=== PATIENT | female | born 1975 | race Caucasian/White ===

== ENCOUNTER 2021-06-11 14:27 | Emergency (ER) | payer OTHER ==
[2021-06-11] MEDS ORDERED: IBUPROFEN 600 MG TAB PO STA (14:59)
== END 2021-06-11 18:27 | disposition home or self-care (01) ==
LOC: ER 14:58
DX: R07.89 Other chest pain (principal); S20.219A Contusion of unspecified front wall of thorax, initial encounter; M79.641 Pain in right hand; V43.52XA Car driver injured in collision with other type car in traffic accident, initial encounter; Y92.488 Other paved roadways as the place of occurrence of the external cause; F17.210 Nicotine dependence, cigarettes, uncomplicated; B19.20 Unspecified viral hepatitis C without hepatic coma
CPT/HCPCS: 71046; 99283

== ENCOUNTER 2022-01-11 15:13 | Emergency (ER) | payer SELFPAY ==
[~2022-01-11] VITALS: Ht 165.1 cm; Wt 61.2 kg
[2022-01-11] MEDS ORDERED: DIPHTH/TETANUS/ACEL. PERTUSSIS 0.5 ML SYR IM ONE (15:30)
[2022-01-11] MEDS ORDERED: KETOROLAC TROMETHAMINE 60 MG/2 ML VIAL IM ONE (16:00)
[2022-01-11] MEDS ORDERED: LIDOCAINE HCL 1% 2 ML AMP ONE (16:17)
[2022-01-11] MEDS ORDERED: CEPHALEXIN500 MG PO (16:18)
[2022-01-11] MEDS ORDERED: TETANUS/DIPHTHERIA TOX ADULT 0.5 ML SYR ONE (16:33)
[2022-01-11] MEDS ORDERED: BACITRACIN ZINC 0.9GM TP ONE (16:33)
[2022-01-11] MEDS ORDERED: LIDOCAINE HCL 1% LOCAL INJ 20 ML VIAL INJ ONE (17:00)
== END 2022-01-11 16:53 | disposition home or self-care (01) ==
LOC: ER 15:45
DX: S91.011A Laceration without foreign body, right ankle, initial encounter (principal); W26.8XXA Contact with other sharp object(s), not elsewhere classified, initial encounter; Y93.H2 Activity, gardening and landscaping; Y92.007 Garden or yard of unspecified non-institutional (private) residence as the place of occurrence of the external cause; B19.20 Unspecified viral hepatitis C without hepatic coma; F17.210 Nicotine dependence, cigarettes, uncomplicated
CPT/HCPCS: 12002; 73610; 90471; 90714; 99283; J1885; J2001

== ENCOUNTER 2022-06-19 11:48 | Emergency (ER) | payer SELFPAY ==
[~2022-06-19] VITALS: Ht 165.1 cm; Wt 61.2 kg
[~2022-06-19 11:48] MED LIST: CEPHALEXIN500 MG PO
== END 2022-06-19 12:10 | disposition home or self-care (01) ==
LOC: ER 12:06
DX: R50.9 Fever, unspecified (principal); R09.89 Other specified symptoms and signs involving the circulatory and respiratory systems; R05.9 Cough, unspecified; B19.20 Unspecified viral hepatitis C without hepatic coma; F17.210 Nicotine dependence, cigarettes, uncomplicated
CPT/HCPCS: 99282

== ENCOUNTER 2024-05-30 01:38 | Emergency (ER) | payer BC ==
[~2024-05-30] VITALS: Ht 165.1 cm; Wt 61.2 kg
[2024-05-30 01:42] VITALS: PULSE 84; RESP 17; TEMP 98.4; O2SAT 100
[2024-05-30] MEDS ORDERED: BACTRIM 400-801 EACH PO (01:45)
== END 2024-05-30 01:50 | disposition home or self-care (01) ==
LOC: ER 01:46
DX: L08.0 Pyoderma (principal); B19.20 Unspecified viral hepatitis C without hepatic coma; F17.210 Nicotine dependence, cigarettes, uncomplicated
CPT/HCPCS: 99282

== ENCOUNTER 2024-07-15 22:51 | Emergency (ER) | payer BC ==
[~2024-07-15] VITALS: Ht 165.1 cm; Wt 61.2 kg
[~2024-07-15 22:51] MED LIST changes: +BACTRIM 400-801 EACH PO
[2024-07-15] MEDS ORDERED: BACTRIM DS TAB1 EACH PO (23:07)
[2024-07-15] MEDS ORDERED: CEPHALEXIN500 MG PO (23:07)
[2024-07-15 23:08] VITALS: PULSE 92; RESP 18; TEMP 98.4; O2SAT 100
[2024-07-16] MEDS ORDERED: SODIUM CHLORIDE 0.9% 1000ML 1,000 ML ONE (00:45)
== END 2024-07-15 23:20 | disposition home or self-care (01) ==
LOC: ER 22:58
DX: L08.9 Local infection of the skin and subcutaneous tissue, unspecified (principal); B19.20 Unspecified viral hepatitis C without hepatic coma
CPT/HCPCS: 99282; J7030

== ENCOUNTER 2024-10-30 04:53 | Emergency (ER) | payer BC, OTHER ==
[~2024-10-30] VITALS: Ht 165.1 cm; Wt 61.2 kg
[~2024-10-30 04:53] MED LIST changes: +BACTRIM DS TAB1 EACH PO
[2024-10-30 04:59] VITALS: PULSE 81; RESP 16; TEMP 98.4; O2SAT 100
== END 2024-10-30 05:05 | disposition home or self-care (01) ==
LOC: ER 04:59
DX: L08.9 Local infection of the skin and subcutaneous tissue, unspecified (principal); F15.10 Other stimulant abuse, uncomplicated; K76.9 Liver disease, unspecified; F17.210 Nicotine dependence, cigarettes, uncomplicated
CPT/HCPCS: 99283

== ENCOUNTER 2024-11-23 04:02 | Emergency (ER) | payer OTHER ==
[~2024-11-23] VITALS: Ht 165.1 cm; Wt 61.2 kg
[2024-11-23 04:06] VITALS: PULSE 82; RESP 16; TEMP 98.2; O2SAT 100
[2024-11-23] MEDS ORDERED: CORTISPORIN-TC10 M1 LEFT EAR (04:23)
== END 2024-11-23 04:30 | disposition home or self-care (01) ==
LOC: ER 04:22
DX: H60.91 Unspecified otitis externa, right ear (principal); H93.11 Tinnitus, right ear; K76.9 Liver disease, unspecified; F17.210 Nicotine dependence, cigarettes, uncomplicated
CPT/HCPCS: 99283

== ENCOUNTER 2025-02-15 23:35 | Emergency (ER) | payer OTHER ==
[~2025-02-15] VITALS: Ht 165.1 cm; Wt 61.2 kg
[~2025-02-15 23:35] MED LIST changes: +CORTISPORIN-TC10 M1 LEFT EAR
[2025-02-15] MEDS ORDERED: AMOX TR-K CLV1 EAC2 PO (23:51)
[2025-02-16] MEDS: KETOROLAC TROMETHAMINE 30 MG/ML VIAL IV STA (00:11)
[2025-02-16 00:19] LABS: BASOPHILS # (AUTO) 0.1 (0.0-0.1); BASOPHILS % 0.5 % (0.0-1.0); EOSINOPHILS # (AUTO) 0.1 (0.0-0.4); EOSINOPHILS % 1.4 % (0.0-6.0); HEMATOCRIT 33.5 % (34.2-44.1); HEMOGLOBIN 11.3 g/dL (12.0-16.0); LYMPHOCYTES # (AUTO) 1.7 (1.0-3.2); LYMPHOCYTES % 18.5 % (18.0-39.1); MEAN CORPUSCULAR HEMOGLOBIN 31.8 pg (28-32); MEAN CORPUSCULAR HGB CONC 33.7 g/dL (31-35); MEAN CORPUSCULAR VOLUME 94.4 fL (81-99); MONOCYTES # (AUTO) 0.6 (0.2-0.8); NEUTROPHILS # (AUTO) 6.8 (2.1-6.9); NEUTROPHILS % 73.3 % (38.7-80.0); PLATELET COUNT 382 x10e3/uL (140-360); RED BLOOD COUNT 3.55 x10e6/uL (3.6-5.1); RED CELL DISTRIBUTION WIDTH 14.1 % (11.7-14.4); WHITE BLOOD COUNT 9.24 x10e3/uL (4.8-10.8)
[2025-02-16 00:38] LABS: ALBUMIN/GLOBULIN RATIO 1.1 (0.8-2.0); ANION GAP 17.4 mmol/L (8-16); BILIRUBIN,TOTAL 0.7 mg/dL (0.2-1.2); CALCIUM 9.5 mg/dL (8.4-10.2); CREATININE, SERUM 0.84 mg/dL (0.57-1.11); TOTAL PROTEIN 7.5 g/dL (6.5-8.1)
[2025-02-16 00:42] LABS: POTASSIUM 3.4 mmol/L (3.5-5.1)
[2025-02-16] MEDS: VANCOMYCIN 1.5 GM/300 ML (PEG) 300 ML IV ONE (04:58)
[2025-02-16 05:34] VITALS: PULSE 71; RESP 16; TEMP 98.9; O2SAT 99
== END 2025-02-16 05:51 | disposition home or self-care (01) ==
LOC: ER 23:45
DX: L03.115 Cellulitis of right lower limb (principal); F15.10 Other stimulant abuse, uncomplicated; B19.20 Unspecified viral hepatitis C without hepatic coma; F17.210 Nicotine dependence, cigarettes, uncomplicated
CPT/HCPCS: 36415; 73630; 80053; 85025; 99284; J1885; J2543

== ENCOUNTER 2025-06-19 02:08 | Emergency (ER) | payer OTHER ==
[~2025-06-19] VITALS: Ht 165.1 cm; Wt 61.2 kg
[~2025-06-19 02:08] MED LIST changes: +AMOX TR-K CLV1 EAC2 PO
[2025-06-19 02:47] VITALS: PULSE 79; RESP 18
[2025-06-19 02:50] VITALS: TEMP 97.9
[2025-06-19] MEDS ORDERED: ENULOSE10 GM/15 M PO (02:56)
[2025-06-19 03:03] VITALS: BP 114/77; PULSE 77; RESP 16; TEMP 97.9; O2SAT 99
== END 2025-06-19 03:06 | disposition home or self-care (01) ==
LOC: ER 02:12
DX: K59.00 Constipation, unspecified (principal); B19.20 Unspecified viral hepatitis C without hepatic coma
CPT/HCPCS: 74018; 99283

== ENCOUNTER 2025-08-01 22:38 | Emergency (ER) | payer OTHER ==
[~2025-08-01] VITALS: Ht 165.1 cm; Wt 61.2 kg
[~2025-08-01 22:38] MED LIST changes: +ENULOSE10 GM/15 M PO
[2025-08-01 23:00] VITALS: PULSE 79; RESP 18; TEMP 98.4; O2SAT 98
[2025-08-01] MEDS: KETOROLAC TROMETHAMINE 60 MG/2 ML VIAL IM STA (23:36)
[2025-08-01] MEDS ORDERED: AUGMENTIN 500-1 EACH PO (23:51)
[2025-08-01] MEDS ORDERED: KETOROLAC TROME10 MG PO (23:51)
== END 2025-08-02 00:03 | disposition home or self-care (01) ==
LOC: ER 22:48
DX: R07.89 Other chest pain (principal); S20.219A Contusion of unspecified front wall of thorax, initial encounter; L13.1 Subcorneal pustular dermatitis; Y93.83 Activity, rough housing and horseplay
CPT/HCPCS: 71046; 99283; J1885